=== PATIENT | male | born 1955 | race Caucasian/White ===

== ENCOUNTER 2023-04-09 08:15 | Outpatient (RCR) | payer MEDICARE, BC, SELFPAY ==
--- NOTE | 2023-03-19 11:09 | PT.OPDNX ---
PT [facility] Daily [facility] Daily [facility] Start: 03/03/23 09:08 Freq: Status: Active Protocol: Document 03/16/23 08:57 HN (Rec: 03/16/23 12:15 HN [id number]) E-signed By Karen Gray DPT PT [facility] Daily Progress Note Visit Information Note Type Daily Note,Re-Evaluation Visit Number 2 Insurance Information Recert Due Date 05/28/23 Insurance Name Medicare B,[employer] Medical Diagnosis Right hip pain right hip replacement DOS 03/09 Treating Diagnosis Right hip pain, limited hip ROM, gross LE weakness, antalgic gait Referring MD [place] Subjective Subjective Patient is 67 year old male with s/p R hip replacement . Patient reports stayed 1 night in the hospital, no complications. Patient reports pain is moderate, not taking in oxycodone and has weaned off ibuprofen in last few days . Patient is wearing compression stockings due to increased edema. Pain characteristics: pain is dull and sharp at times in anterior hip. Aggravating factors: walking, stairs, sit to stand Easing Factors: rest Prior level of function: unlimited performance with ADLs and IADLs with increased pain due to hip OA Current limitations: sit to stands, ambulation, stair navigation PMH: hypertension, inguinal hernia, L knee meniscus tear, R knee pain Social History: 4 steps in from garage, 2 rails. Patient 18 stairs 1 rail to second floor of home. Currently staying on main floor of home. Lives with Johanna who is provided caregiving support, patient reports no difficulty getting in and out car. walking around grocery, store, playing with grandchildren, stairs, 1-3 steps on ladder Pain Comments Current: 0/10 Best: 3/10 Worst: 5/10 Preferred Name [place] Precautions Treatment Precautions/Contraindications anterior hip precautions Weight Bearing Status Weight Bear as Tolerated Objective Other/Pertinent Objective Hip range of motion (degrees): Flexion: 90 degrees (within precautions) Extension: deferred will assess as appropriate External rotation: deferred will assess as appropriate Internal rotation: deferred will assess as appropriate Manual muscle testing: Hip flexion: 5/5 L , 4-/5 R Hip abduction(seated): 5/5 L , 4/5 R Hip adduction (seated): 5/5 L , 4/5 R Hip extension: deferred will assess as appropriate Knee extension: 5/5 L , 4/5 R Knee flexion: 5/5 L , 5/5 R Functional Test Performed & Score 5 time sit to stand: 12 seconds TU seconds with 2WW Jr. ABDULKADIR Score: 8 / 28, Interval Score: 64.664 / 100 Patient Instructed in Risks/Benefits Yes Therapeutic Exercise Therapeutic Exercise Minutes (minutes) 15 Therapeutic Exercise: To Restore Patient completed the Functional Status exercises listed below to decrease pain and improve R LE strength -Hamstring isometric 1x10 5 second hold - Heel slide 1x10 - Quad isometric 1x10 5 second hold - Hip abduction isometric with belt 1x10 5 second hold - hip adduction isometric with pillow 1x10 5 second hold - Standing march 2x10 with UE support - Heel raise 2x10 with UE support Therapeutic Activity Therapeutic Activity Minutes (minutes) 15 Therapeutic Activities Comments Assessed patient's TUG, 5 time sit to stand. Patient completed 2x10 sit to stands from elevated mat, precautions maintained). Gait & Stair Training Gait Training/Stairs Minutes (minutes) 8 Gait & Stair Training Comments Patient educated on use of SPC including gait mechanics and appropriate introduction. Patient demonstrates safe mechanics with SPC. Self Care Management Training Self-Care Activity Minutes (minutes) 3 Self Care Management Training Patient educated to elevate feet above heart and complete ankle pumps to decrease edema in R LE. Treatment Minutes Timed Code Treatment Minutes 41 Total Treatment Time 41 Billing Units Gait Training/Stairs Units 1 Therapeutic Activity Units 1 Therapeutic Exercise Units 1 Assessment/Impression Assessment/Impression Patient is a 67 year old with R hip pain and stiffness s/p R ANCA on 03/09/23. Patient demonstrates impaired right hip range of motion, strength, pain, and impaired gait mechanics consistent with post surgical status The impairments impact the patients transfers, ambulation , stair navigation and participation ADLs, IADLs and recreational activity. Patient will benefit from skilled physical therapy to address the impairments and activity limitations listed above. Prognostic factors include patient's motivation and low level of pain currently Plan of Care Physical Therapy Goals Short term goals (4 weeks 04/13) 1. Patient will demonstrate MMT of 5/5 in hip and LE in order to demonstrate improved tolerance with lifting, carrying groceries. 2. Patient will complete 5 time sit to insurance customer service specialist 10 seconds or less with no use of hands in order to demonstrate improved R LE functional strength 3. Patient will complete timed up and go in 10 seconds or less with no AD in order to demonstrate safety with transfers and home navigation. detention goals 10 weeks, 05/28 1. Patient will demonstrate HOOS JR score improvement of 85/100 in order to demonstrate decreased pain and disability related to R hip symptoms 2. Patient will ascend/descend 18 stairs reciprocally with 1 rail in order to navigate home safely. 3. Patient will demonstrate independence with HEP in order to decrease hip pain and improve hip strength 4. Patient will tolerate walking >25 minutes with no increase in pain and no AD order to complete IADLs including grocery shopping Daily Plan of Care Continue per POC Daily Plan of Care Comments Review and progress home exercise program
== END 2023-04-09 08:59 | disposition home or self-care (01) ==
PROVIDERS: PCP Family Medicine; Visit Provider Orthopaedic Surgery
DX: M16.11 Unilateral primary osteoarthritis, right hip (principal); Z96.641 Presence of right artificial hip joint; M62.81 Muscle weakness (generalized); R26.89 Other abnormalities of gait and mobility; M25.551 Pain in right hip; Z51.89 Encounter for other specified aftercare
CPT/HCPCS: 97110; 97116; 97140; 97161; 97530